=== PATIENT | female | born 1995 | race Caucasian/White ===

== ENCOUNTER 2017-10-31 00:47 | Observation (INO) | payer OTHER ==
[~2017-10-31] VITALS: Ht 157.5 cm; Wt 54.5 kg
[2017-10-31 00:51] VITALS: Ht 157.5 cm; Wt 54.5 kg
[2017-10-31] MEDS ORDERED: ONDANSETRON INJ 2 MG/ML 2 ML VIAL IV STA ×2 (01:03→02:05)
[2017-10-31] MEDS ORDERED: DiphenhydrAMINE HCL 50 MG/ML VIAL IV STA ×2 (01:03→04:33)
[2017-10-31] MEDS ORDERED: KETOROLAC TROMETHAMINE 30 MG/ML VIAL IV STA (01:03)
--- NOTE | 2017-10-31 01:13 | EMERGENCY ROOM VISIT NOTE ---
History Report prepared by Wes: Isidro Tello Under the Supervision of: Dr. Maurice Caceres M.D. First contact with patient: 00:57 Chief Complaint: VOMITING Stated Complaint: VOMITING BAD PAIN - NAUSEA History of Present Illness The patient is a 22 year old female who presents to the Emergency Room with complaints of worsening, upper, abdominal pain beginning early today. She currently rates her discomfort an 8/10 in severity. The patient states she developed abdominal pain this morning and then started vomiting this afternoon. She reports she cannot drink water without making her symptoms worse. The patient notes she ate jair lettuce on Thursday and vomited when she got home. She states she has been fine all week. The patient reports she has been drinking alcohol throughout the week, but she has not drank enough to vomit. She notes her symptoms radiate into her back. The patient states she had a few episodes of diarrhea and nausea, and she denies bloody stool. She reports she did eat some cake today and was able to keep that down. The patient denies fevers, urinary symptoms, previous abdominal surgeries, falls, injury, and rashes. She notes a strong family history of gallbladder disease. Source of History: patient Onset: earlier today Position: abdomen (upper) Symptom Intensity: 8/10 Timing: worsening Associated Symptoms: + nausea, + vomiting, + back pain, + diarrhea, No fevers, No urinary symptoms, No rash Note: Denies: bloody stool Review of Systems See HPI for pertinent positives & negatives. A total of 10 systems reviewed and were otherwise negative. Past Medical & Surgical Surgical Problems: (1) H/O wisdom tooth extraction Family History FHx: gallbladder disease Fatty liver GRANDMOTHER, Onset:40's - 50 (Grandmother at 48 secodary to fatty liver) Social History Smoking Status: Never Smoker Alcohol Use: occasionally Marital Status: single Occupation Status: [employer] student Current/Historical Medications Scheduled Control Pills ( Control Pills), 1 TAB PO DAILY Fluticasone Propionate (Nasal) (Flonase Allergy Relief), 1 SPRAY MARY DAILY Allergies Uncoded Allergies: AVACADOS (Allergy, Unknown, pruritis, 10/31/17) Physical Exam Vital Signs Date Time Temp Pulse Resp B/P (MAP) Pulse Ox O2 Delivery O2 Flow Rate FiO2 10/31/17 04:34 36.8 99 16 113/69 100 Room Air 10/31/17 03:29 83 16 115/61 97 Room Air 10/31/17 02:19 88 18 109/67 99 Room Air 10/31/17 00:51 36.7 79 18 127/52 94 Room Air Physical Exam GENERAL: Patient is uncomfortable appearing and in moderate distress. Dehydrated appearing. EYES: No scleral icterus, unremarkable pupils. ENT: Mucous membranes dry, no nasal congestion. NECK: No masses appreciated, no meningismus, trachea is midline. RESPIRATORY: No dyspnea. Clear to auscultation and equal bilaterally. No wheeze , no rhonchi. CARDIOVASCULAR: Regular rate and rhythm. No murmurs, rubs, gallops appreciated. GASTROINTESTINAL: Abdomen soft, epigastric tenderness to palpation, no peritonitis. Bowel sounds positive. No masses appreciated. BACK: No midline tenderness, no CVA tenderness EXTREMITIES: Normal motion all extremities, no cyanosis, no edema. NEUROLOGIC: Alert and oriented, no acute motor or sensory deficits, no focal weakness, cranial nerves grossly intact. SKIN: No rash, no jaundice, no diaphoresis. Mildly pale. Medical Decision & Procedures ER Provider Diagnostic Interpretation: Radiology results and stated below per my review and radiologist interpretation: US RUQ: There is some echogenic sludge noted in the gallbladder. However, the gallbladder wall is within normal limits. No biliary dilatation. Please correlate with clinical exam. The visualized pancreas is within normal limits. Hepatic enlargement with evidence of fatty infiltration. No focal abnormalities. No evidence for right hydronephrosis. Radiologist: Wood Strauss MD Laboratory Results 10/31/17 01:00 Red Blood Count 4.45, Mean Corpuscular Volume 86.1, Mean Corpuscular Hemoglobin 29.4, Mean Corpuscular Hemoglobin Concent 34.2, Mean Platelet Volume 9.5, Neutrophils (%) (Auto) 79.9, Lymphocytes (%) (Auto) 13.5, Monocytes (%) (Auto) 5.3, Eosinophils (%) (Auto) 0.9, Basophils (%) (Auto) 0.1, Neutrophils # (Auto) 6.14, Lymphocytes # (Auto) 1.04, Monocytes # (Auto) 0.41, Eosinophils # (Auto) 0.07, Basophils # (Auto) 0.01 10/31/17 01:00 Test 10/31/17 01:00 10/31/17 03:12 White Blood Count 7.69 K/uL (4.8-10.8) Red Blood Count 4.45 M/uL (4.2-5.4) Hemoglobin 13.1 g/dL (12.0-16.0) Hematocrit 38.3 % (37-47) Mean Corpuscular Volume 86.1 fL (80-100) Mean Corpuscular Hemoglobin 29.4 pg (25-34) Mean Corpuscular Hemoglobin Concent 34.2 g/dl (32-36) Platelet Count 209 K/uL (130-400) Mean Platelet Volume 9.5 fL (7.4-10.4) Neutrophils (%) (Auto) 79.9 % Lymphocytes (%) (Auto) 13.5 % Monocytes (%) (Auto) 5.3 % Eosinophils (%) (Auto) 0.9 % Basophils (%) (Auto) 0.1 % Neutrophils # (Auto) 6.14 K/uL (1.4-6.5) Lymphocytes # (Auto) 1.04 K/uL (1.2-3.4) Monocytes # (Auto) 0.41 K/uL (0.11-0.59) Eosinophils # (Auto) 0.07 K/uL (0-0.5) Basophils # (Auto) 0.01 K/uL (0-0.2) RDW Standard Deviation 40.0 fL (36.4-46.3) RDW Coefficient of Variation 12.7 % (11.5-14.5) Immature Granulocyte % (Auto) 0.3 % Immature Granulocyte # (Auto) 0.02 K/uL (0.00-0.02) Anion Gap 7.0 mmol/L (3-11) Est Creatinine Clear Calc Drug Dose 85.5 ml/min Estimated GFR () 118.6 Estimated GFR (Non- 102.4 BUN/Creatinine Ratio 19.9 (10-20) Calcium Level 8.4 mg/dl (8.5-10.1) Total Bilirubin 0.4 mg/dl (0.2-1) Direct Bilirubin 0.1 mg/dl (0-0.2) Aspartate Amino Transf (AST/SGOT) 13 U/L (15-37) Alanine Aminotransferase (ALT/SGPT) 17 U/L (12-78) Alkaline Phosphatase 49 U/L (45-117) Total Protein 7.5 gm/dl (6.4-8.2) Albumin 3.8 gm/dl (3.4-5.0) Lipase 80 U/L (73-393) Urine Color YELLOW Urine Appearance CLEAR (CLEAR) Urine pH 7.0 (4.5-7.5) Urine Specific [place] 1.029 (1.000-1.030) Urine Protein NEG (NEG) Urine Glucose (UA) NEG (NEG) Urine Ketones 2+ (NEG) Urine Occult Blood NEG (NEG) Urine Nitrite NEG (NEG) Urine Bilirubin NEG (NEG) Urine Urobilinogen NEG (NEG) Urine Leukocyte Esterase NEG (NEG) Urine WBC (Auto) 1-5 /hpf (0-5) Urine RBC (Auto) 0-4 /hpf (0-4) Urine Hyaline Casts (Auto) 1-5 /lpf (0-5) Urine Epithelial Cells (Auto) 20-30 /lpf (0-5) Urine Bacteria (Auto) NEG (NEG) Urine Test NEG (NEG) Laboratory results as reviewed by me. Medications Administered Medications (Trade) Dose Ordered Sig/Greg Route Start Time Stop Time Status Last Admin Dose Admin Ketorolac Tromethamine (Toradol Inj) 30 mg NOW STAT IV 10/31/17 01:03 10/31/17 01:05 DC 10/31/17 01:14 30 MG Ondansetron HCl (Zofran Inj) 4 mg NOW STAT IV 10/31/17 01:03 10/31/17 01:05 DC 10/31/17 01:13 4 MG Diphenhydramine HCl (Benadryl Inj) 25 mg NOW STAT IV 10/31/17 01:03 10/31/17 01:05 DC 10/31/17 01:14 25 MG Sodium Chloride 1,000 ml @ 999 mls/hr Q1H1M STAT IV 10/31/17 02:05 10/31/17 03:05 DC 10/31/17 02:16 999 MLS/HR Ondansetron HCl (Zofran Inj) 4 mg NOW STAT IV 10/31/17 02:05 10/31/17 02:06 DC 10/31/17 02:16 4 MG Promethazine HCl 12.5 mg/Sodium Chloride 50.5 ml @ 204 mls/hr NOW STAT IV 10/31/17 03:11 10/31/17 03:25 DC 10/31/17 03:25 204 MLS/HR Ranitidine HCl (zANTac SYRUP) 150 mg NOW ONCE PO 10/31/17 03:15 10/31/17 03:16 DC 10/31/17 03:43 150 MG Al Hydroxide/Mg Hydroxide (Maalox Susp) 30 ml STK-MED ONCE .ROUTE 10/31/17 03:21 10/31/17 03:22 DC 10/31/17 03:43 30 ML Lidocaine HCl (Viscous Lidocaine 2% Soln) 20 ml STK-MED ONCE .ROUTE 10/31/17 03:21 10/31/17 03:22 DC 10/31/17 03:43 10 ML Sodium Chloride 1,000 ml @ 999 mls/hr Q1H1M STAT IV 10/31/17 03:33 10/31/17 04:33 DC 10/31/17 03:47 999 MLS/HR Diphenhydramine HCl (Benadryl Inj) 25 mg NOW STAT IV 10/31/17 04:33 10/31/17 04:35 DC 10/31/17 04:41 25 MG Promethazine HCl 12.5 mg/Sodium Chloride 50.5 ml @ 202 mls/hr NOW STAT IV 10/31/17 04:40 10/31/17 04:54 DC 10/31/17 04:48 202 MLS/HR ED Course 0059: The patient was evaluated in room A11B. A complete history and physical exam was performed. 0201: I reevaluated the patient. She is feeling much better. She has experienced residual nausea. She denies further pain. Repeat abdominal exam is benign. The patient will receive fluids 0217: I discussed the patient's ultrasound findings with her and her family. The patient's grandmother of cirrhosis of the liver at age 48. 0359: I reevaluated the patient. Her nausea has resolved. 0433: Upon reevaluation, the patient denies significant pain. She is still having persistent nausea. Discussed results and treatment plan with the patient. She verbalized understanding and agreement with the treatment plan. The patient will be evaluated for further management. 0439: I discussed the patient's case with Dr. Chi's Resident, [facility] Hospitalist Service. The patient will be evaluated for further management. Medical Decision Differential: Cholecystitis, Gallbladder disfunction, Hepatic Disfunction, Gastritis/PUD, Renal Colic, Pancreatitis, amongst other pathologies entertained. Pleasant 22 yr old female with nausea, vomiting and minor diarrhea arrives with worsening symptoms associated with epigastric pain radiating to back. Pain controlled easily but despite many rounds of anti-emetics she has continued nausea. Abdominal exam on repeat is benign without peritonitis. Lipase negative and Panc on US looks wnl thus I do not feel this is pancreatitis. She has GB sludge without clear infection which may point to this being disfunction related. LFTs normal but there is already evidence of fatty liver on US thus with her family history I made it clear this must be addressed with primary care provider. She has graduation tomorrow morning but in current state I do not feel that she will do very well as outpatient. Discussed with patient/ mother staying in hospital and both are agreeable. Hospitalist consulted for further evaluation. Head Trauma GCS Score: 15 Medication Reconcilliation Current Medication List: was personally reviewed by me Blood Pressure Screening Patient's blood pressure: Normal blood pressure Blood pressure disposition: Did not require urgent referral Consults Time Called: [id number] Consulting Physician: Dr. Chi's Resident, [facility] Hospitalist Service Returned Call: [phone] I discussed the patient's case with Dr. Chi's Resident, [facility] Hospitalist Service. The patient will be evaluated for further management. Impression Primary Impression: Dehydration Additional Impressions: Nausea & vomiting Abdominal cramping Gallbladder sludge Fatty liver Scribe Attestation The scribe's documentation has been prepared under my direction and personally reviewed by me in its entirety. I confirm that the note above accurately reflects all work, treatment, procedures, and medical decision making performed by me. Departure Information Dispostion Being Evaluated By Hospitalist Referrals No Doctor, Assigned (PCP) Patient Instructions My [facility] Problem Qualifiers
[2017-10-31 01:17] LABS: BASO % 0.1 %; BASO ABS # 0.01 K/uL (0-0.2); EOS % 0.9 %; EOS ABS # 0.07 K/uL (0-0.5); HEMATOCRIT 38.3 % (37-47); HEMOGLOBIN 13.1 g/dL (12.0-16.0); IG# 0.02 K/uL (0.00-0.02); LYMPH % 13.5 %; LYMPH ABS # 1.04 K/uL (1.2-3.4); MEAN CELL VOLUME 86.1 fL (80-100); MEAN CORPUSCULAR HEMOGLOBIN 29.4 pg (25-34); MEAN CORPUSCULAR HGB CONC 34.2 g/dl (32-36); MEAN PLATELET VOLUME 9.5 fL (7.4-10.4); MONO % 5.3 %; MONO ABS # 0.41 K/uL (0.11-0.59); NEUT % 79.9 %; NEUT ABS # 6.14 K/uL (1.4-6.5); PLATELET COUNT 209 K/uL (130-400); RED CELL DISTRIBUTION WIDTH CV 12.7 % (11.5-14.5); WHITE BLOOD COUNT 7.69 K/uL (4.8-10.8)
[2017-10-31] MEDS ORDERED: BCPILLS PO (01:18)
[2017-10-31] MEDS ORDERED: FLUT0.15 NAE (01:19)
[2017-10-31 01:42] LABS: ALBUMIN 3.8 gm/dl (3.4-5.0); CALCIUM 8.4 mg/dl (8.5-10.1); CREATININE 0.81 mg/dl (0.60-1.20); POTASSIUM 3.4 mmol/L (3.5-5.1)
[2017-10-31 01:45] LABS: TOTAL PROTEIN 7.5 gm/dl (6.4-8.2)
[2017-10-31] MEDS ORDERED: SODIUM CHLORIDE 0.9% 1000ML 1,000 ML IV STA ×2 (02:05→03:33)
[2017-10-31] MEDS ORDERED: PROMETHAZINE HCL INJ 12.5 MG in SODIUM CHLORIDE 0.9% 50ML 50 ML IV STA ×2 (03:11→04:40)
[2017-10-31] MEDS ORDERED: GI COCKTAIL PO STA (03:11)
[2017-10-31] MEDS ORDERED: RANITIDINE HCL SYRUP 150 MG/10 ML UDC PO ONE (03:15)
[2017-10-31] MEDS ORDERED: LIDOCAINE HCL 2% VISC SOLN 20 ML UDC ONE (03:21)
[2017-10-31] MEDS ORDERED: ALUMINUM/MAGNESIUM SUSP 30 ML UDC ONE (03:21)
[2017-10-31] MEDS ORDERED: PROMETHAZINE HCL INJ 25 MG/ML 1 ML VIAL IV STA (04:33)
[2017-10-31] MEDS ORDERED: ACETAMINOPHEN 325 MG TAB PO PRN (06:15)
[2017-10-31] MEDS ORDERED: PROMETHAZINE HCL INJ 12.5 MG in SODIUM CHLORIDE 0.9% 50ML 50 ML IV PRN (06:15)
[2017-10-31] MEDS ORDERED: MAGNESIUM HYDROXIDE SUSP 30 ML UDC PO PRN (06:15)
[2017-10-31] MEDS ORDERED: ONDANSETRON INJ 2 MG/ML 2 ML VIAL IV PRN (06:15)
--- NOTE | 2017-10-31 06:22 | History and Physical ---
History & Physical Date & Time of Service: October 31, 2017 at 06:15 Chief Complaint: Vomiting Bad Pain - Nausea Primary Care Physician: Estela Walker M.D. History of Present Illness Source: patient, family, hospital records 22 y/o F with intractable nausea and vomiting and abdominal pain which started yesterday. had 1 episode of loose stool but no fevers/chills. No sick contacts. no recent travel. concerned about eating jair lettuce on Thursday. drinks alcohol occasionally, last intake was yesterday , had 3 drinks. denies any urinary symptoms, abnormal vaginal d/c or bleeding. f/h significant for GB disease Past Medical/Surgical History Medical Problems: (1) Intractable nausea and vomiting Surgical Problems: (1) H/O wisdom tooth extraction Family History FHx: gallbladder disease Fatty liver GRANDMOTHER, Onset:40's - 50 (Grandmother at 48 secodary to fatty liver) Social History Smoking Status: Never Smoker Smokeless Tobacco Use: No Alcohol Use: none Drug Use: none Marital Status: single Occupational Status: [employer] student Immunizations History of Influenza Vaccine: Unknown History of Pneumococcal: No History of Hepatitis B Vaccine: Unknown Allergies Uncoded Allergies: AVACADOS (Allergy, Unknown, pruritis, 10/31/17) Home Medications Scheduled Control Pills ( Control Pills), 1 TAB PO DAILY Famotidine (Pepcid), 20 MG PO BID Fluticasone Propionate (Nasal) (Flonase Allergy Relief), 1 SPRAY MARY DAILY Scheduled PRN Ondansetron Odt (Zofran Odt), 8 MG SL Q8H PRN for Nausea Review of Systems Constitutional: No fever, No chills Eyes: No worsening of vision ENT: No hearing loss Respiratory: No cough, No sputum Cardiovascular: No chest pain Abdomen: + pain, + nausea, + vomiting Musculoskeletal: No joint pain Genitourinary - Female: No dysuria, No urinary frequency, No urinary urgency Neurologic: No memory loss Endocrine: No fatigue Hematologic / Lymphatic: No abnormal bleeding/bruising Physical Exam Vital Signs Date Time Temp Pulse Resp B/P (MAP) Pulse Ox O2 Delivery O2 Flow Rate FiO2 10/31/17 06:00 100 16 114/63 97 Room Air 10/31/17 04:34 36.8 99 16 113/69 100 Room Air 10/31/17 03:29 83 16 115/61 97 Room Air 10/31/17 02:19 88 18 109/67 99 Room Air 10/31/17 00:51 36.7 79 18 127/52 94 Room Air General Appearance: WD/WN, no apparent distress Head: normocephalic ENT: hearing grossly normal Neck: supple, no adenopathy Respiratory/Chest: chest non-tender, lungs clear, normal breath sounds, no respiratory distress, no accessory muscle use Cardiovascular: regular rate, rhythm Abdomen/GI: normal bowel sounds, soft, + tenderness (RUQ and epigastric) Extremities/Musculoskelatal: no pedal edema Neurologic/Psych: alert, normal mood/affect, oriented x 3 Diagnostics Laboratory Results Results Past 24 Hours Test 10/31/17 01:00 10/31/17 03:12 Range/Units White Blood Count 7.69 4.8-10.8 K/uL Red Blood Count 4.45 4.2-5.4 M/uL Hemoglobin 13.1 12.0-16.0 g/dL Hematocrit 38.3 37-47 % Mean Corpuscular Volume 86.1 80-100 fL Mean Corpuscular Hemoglobin 29.4 25-34 pg Mean Corpuscular Hemoglobin Concent 34.2 32-36 g/dl Platelet Count 209 130-400 K/uL Mean Platelet Volume 9.5 7.4-10.4 fL Neutrophils (%) (Auto) 79.9 % Lymphocytes (%) (Auto) 13.5 % Monocytes (%) (Auto) 5.3 % Eosinophils (%) (Auto) 0.9 % Basophils (%) (Auto) 0.1 % Neutrophils # (Auto) 6.14 1.4-6.5 K/uL Lymphocytes # (Auto) 1.04 1.2-3.4 K/uL Monocytes # (Auto) 0.41 0.11-0.59 K/uL Eosinophils # (Auto) 0.07 0-0.5 K/uL Basophils # (Auto) 0.01 0-0.2 K/uL RDW Standard Deviation 40.0 36.4-46.3 fL RDW Coefficient of Variation 12.7 11.5-14.5 % Immature Granulocyte % (Auto) 0.3 % Immature Granulocyte # (Auto) 0.02 0.00-0.02 K/uL Sodium Level 139 136-145 mmol/L Potassium Level 3.4 3.5-5.1 mmol/L Chloride Level 106 98-107 mmol/L Carbon Dioxide Level 26 21-32 mmol/L Anion Gap 7.0 3-11 mmol/L Blood Urea Nitrogen 16 7-18 mg/dl Creatinine 0.81 0.60-1.20 mg/dl Est Creatinine Clear Calc Drug Dose 85.5 ml/min Estimated GFR () 118.6 Estimated GFR (Non- 102.4 BUN/Creatinine Ratio 19.9 10-20 Random Glucose 106 70-99 mg/dl Calcium Level 8.4 8.5-10.1 mg/dl Total Bilirubin 0.4 0.2-1 mg/dl Direct Bilirubin 0.1 0-0.2 mg/dl Aspartate Amino Transf (AST/SGOT) 13 15-37 U/L Alanine Aminotransferase (ALT/SGPT) 17 12-78 U/L Alkaline Phosphatase 49 45-117 U/L Total Protein 7.5 6.4-8.2 gm/dl Albumin 3.8 3.4-5.0 gm/dl Lipase 80 73-393 U/L Urine Color YELLOW Urine Appearance CLEAR CLEAR Urine pH 7.0 4.5-7.5 Urine Specific [place] 1.029 1.000-1.030 Urine Protein NEG NEG Urine Glucose (UA) NEG NEG Urine Ketones 2+ NEG Urine Occult Blood NEG NEG Urine Nitrite NEG NEG Urine Bilirubin NEG NEG Urine Urobilinogen NEG NEG Urine Leukocyte Esterase NEG NEG Urine WBC (Auto) 1-5 0-5 /hpf Urine RBC (Auto) 0-4 0-4 /hpf Urine Hyaline Casts (Auto) 1-5 0-5 /lpf Urine Epithelial Cells (Auto) 20-30 0-5 /lpf Urine Bacteria (Auto) NEG NEG Urine Test NEG NEG Diagnostic Radiology GB US There is some echogenic sludge noted in the gallbladder. However, the gallbladder wall is within normal limits. No biliary dilatation. Please correlate with clinical exam. The visualized pancreas is within normal limits. Hepatic enlargement with evidence of fatty infiltration. No focal abnormalities. No evidence for right hydronephrosis. Impression Assessment and Plan 22 y/o F here with intractable nausea and vomiting Intractable nausea/vomiting - GB US : GB sludge and fatty liver - continue IVF - Zofran and Phenergan as needed for NV - Protonix IV for possible gastritis Family would like to pursue further testing in [place] for fatty liver . Full code DVT PPx: SCDs admit to med/surg Attending addendum: I have physically seen this patient, have supervised the medical residents activities, and agree with the H&P unless as otherwise noted. Assessment and Plan: Intractable nausea and vomiting/dehydration-- Observation status to the medical floor. NSS plus KCl 20 mEq at 200 mils per hour. Pantoprazole 40 mg IV daily. Zofran 4 mg IV every 6 hours as needed. Phenergan 10 mg IV every 6 hours as needed. elsie Discussed with patient and mother, who is in the room, possible diagnoses including toxin induced food poisoning, food poisoning, severe gastritis, gastric ulcer, duodenal ulcer, liver disease. In either case, patient and mother will be more comfortable having definitive therapy with her home [facility] physician in [place]. The patient will be admitted for IV fluids and treatment as above, so that she may be able to attend graduation early tomorrow morning. There was concern among family regarding significant issues with liver disease and in family members. It was discussed with patient and mother that there is no suggestion of any type of liver cancer, but that could not be completely eliminated. Ultrasound gallbladder did show gallbladder sludge and fatty liver. Unless patient has persistent or worsening symptoms that we would pursue further , will not order HIDA scan with gallbladder EF or CT abdomen pelvis, or additional workup for fatty liver at this time. Advanced Directives Existing Advance Directive: No Existing Living Will: No Existing Power of Hr Administrator: No Resuscitation Status VTE Prophylaxis Will order VTE Prophylaxis: Yes Social Service Consult None Apply Resident Tracking Resident Involvement: Resident Care Provided Care Provided: Adult Hospital Medicine
[2017-10-31] MEDS ORDERED: PANTOprazole INJ 40 MG in SYRINGE 0 ML IV STA (06:24)
--- NOTE | 2017-10-31 06:42 | DIAGNOSTIC IMAGING REPORT ---
GALLBLADDER-ABD LIMITED CLINICAL HISTORY: 22 years-old Female presenting with epigastric pain/RUQ with n/v. Eval Pancrease if possible. TECHNIQUE: Real-time grayscale and limited color Doppler ultrasound imaging of the abdomen limited to the right upper quadrant was performed. COMPARISON: None. FINDINGS: Pancreas: Visualized portions of the pancreatic head and body normal. Liver: Mildly hyperechogenic parenchyma, although the right hemidiaphragm remains visible, likely indicating mild steatosis. The liver measures 18 cm in maximal sagittal dimension. No sonographic evidence of hepatic mass. Main portal vein patent with normal directional flow. Biliary: No intrahepatic biliary ductal dilatation. Common bile duct measures up to 3 mm in diameter. Gallbladder: Gallbladder sludge. No evidence of gallstones, gallbladder wall thickening, gallbladder distention, or pericholecystic fluid or inflammatory change. Right kidney: Normal in appearance without evidence of hydronephrosis. Ascites: None. Other: None. IMPRESSION: 1. Gallbladder sludge without cholelithiasis or biliary ductal dilatation. 2. Hepatic steatosis. Correlate with liver function tests to exclude steatohepatitis as a cause for abdominal pain. Electronically signed by: Mirza Aguirre M.D. 10/31/2017 6:40 AM Dictated Date/Time: 10/31/2017 6:39 AM
[2017-10-31] MEDS ORDERED: IV FLUIDS COMPLETED PRN (07:00)
[2017-10-31 07:01] VITALS: O2SAT 97
[2017-10-31 07:38] VITALS: BP 104/67; PULSE 70; TEMP 37.1; O2SAT 98
[2017-10-31] MEDS ORDERED: NSS + 20MEQ KCL 1000ML 1,000 ML IV SCH (07:45)
[2017-10-31] MEDS ORDERED: BCP'S~ORDER AWAITING ACTION SCH (08:00)
[2017-10-31] MEDS ORDERED: FAMO20TA11 PO ×2 (11:01→13:20)
[2017-10-31] MEDS ORDERED: ONDA8TAB62 SL ×2 (11:01→13:20)
--- NOTE | 2017-10-31 11:09 | Discharge Instructions ---
Discharge Instructions Date of Service October 31, 2017. Admission Reason for Admission: Intractable Nausea And Vomiting Discharge Discharge Diagnosis / Problem: nausea/vomiting - likely viral gastroenteritis Discharge Goals Goal(s): Diagnostic testing, Therapeutic intervention Activity Recommendations Activity Limitations: resume your previous activity . Instructions / Follow-Up Instructions / Follow-Up viral gastroenteritis -fortunately we're not seeing anything worrisome from a food poisoning / gallbladder (see below) or other point of view - and given that we're still seeing stomach bugs going around, it's most likely that you had a viral gastroenteritis -because you had such severe nausea/vomiting, it may take a week or so for you stomach to get back to normal. to that end: -use pepcid (famotidine) twice a day for the next few days to a week (until you feel normal/ feel like you don't have any stomach pain/ache) - if you are past day 7 and still needing it, this would be a good trigger to get evaluated -use the zofran (ondansetron) fairly liberally as needed for nausea - it can be taken as much as every six hours as needed - again if you find that you're needing it at all past about a week from now, that would warrant further investigation gallbladder sludge -with no signs of inflammation, infection, or obstruction, the gallbladder sludge is likely just an incidental finding. about 25% of all people when imaged have stones or sludge in the gallbladder, and just sitting there without blocking things up is "a time bomb that sometimes never goes off" -- ie many, many people will have those sort of findings for years without it ever actually being a problem -as we discussed, however, sometimes gallbladder issues can show up atypically - - if you find that you get a "stomach bug" way too frequently (once a year is unfortunately fairly normal, but say, once a month -- then we'd be more suspicious that the gallbladder acting up in an atypical presentation could be the case) then we'd want you checked out fatty liver -this is actually a fairly common finding - acutely often related to current lifestyle issues -for the next month, get back to eating healthy and don't drink any alcohol -- have a repeat ultrasound in a month. if your liver isn't normal//getting back to normal, then it would warrant further investigation. common things being common, checking a lipid panel and an A1c (3 month sugar average) provides the root cause in the majority of people with fatty liver that aren't just acutely lifestyle related. there is an entity of fatty liver with uncertain cause ( ESTEVEZ - nonalcoholic fatty liver) but truthfully the majority of those are just chronic lifestyle issues that aren't being corrected; there are a small percent with liver problems that we don't entirely understand -- but the odds are heavily against that; and most likely this is something that will resolve itself with time and the above noted / discussed lifestyle changes Current Hospital Diet Patient's current hospital diet: Low Fiber Diet Discharge Diet Recommended Diet: Regular Diet Pending Studies Studies pending at discharge: no Medical Emergencies . Who to Call and When: Medical Emergencies: If at any time you feel your situation is an emergency, please call 911 immediately. . Non-Emergent Contact Non-Emergency issues call your: Primary Care Provider . . "Provider Documentation" section prepared by Rosalino Thompson. .
--- NOTE | 2017-10-31 11:21 | Discharge Summary ---
Discharge Summary Date of Service October 31, 2017. Discharge Summary Admission Date: October 31, 2017 at 06:13 Discharge Date: October 31, 2017 Discharge Disposition: Home Principal Diagnosis: Nausea/Vomiting Procedures: None Consultations: None Medication Reconciliation New Medications: Famotidine (Pepcid) 20 Mg Tab 20 MG PO BID, #14 TAB Ondansetron Odt (Zofran Odt) 8 Mg Soltab 8 MG SL Q6H PRN for Nausea, #30 TAB Continued Medications: Control Pills ( Control Pills) Tab 1 TAB PO DAILY, TAB Fluticasone Propionate (Nasal) (Flonase Allergy Relief) 50 Mcg/Act Spr 1 SPRAY MARY DAILY Discharge Exam Review of Systems: Constitutional: No fever, No chills, No sweats, No weight loss Eyes: No worsening of vision ENT: No hearing loss Respiratory: No cough, No sputum, No wheezing Cardiovascular: No chest pain Abdomen: + nausea (improved), No pain Musculoskeletal: No joint pain Genitourinary - Female: No dysuria Neurologic: No memory loss, No paralysis Endocrine: No fatigue Integumentary: No rash Physical Exam: General Appearance: WD/WN, no apparent distress Eyes: normal inspection, PERRL ENT: hearing grossly normal Neck: no adenopathy Respiratory/Chest: lungs clear Cardiovascular: regular rate, rhythm, no murmur Abdomen / GI: normal bowel sounds, non tender, soft Extremities: no calf tenderness, no pedal edema Neurologic/Psychiatric: alert, normal mood/affect Skin: no rash Hospital Course HPI: 22 y/o F with intractable nausea and vomiting and abdominal pain which started yesterday. had 1 episode of loose stool but no fevers/chills. No sick contacts. no recent travel. concerned about eating jair lettuce on Thursday. drinks alcohol occasionally, last intake was yesterday , had 3 drinks. denies any urinary symptoms, abnormal vaginal d/c or bleeding. f/h significant for GB disease HOSPITAL COURSE: Intractable nausea/vomiting - GB US : GB sludge and fatty liver - Resolved w/IV fluids and antiemetics - No further vomiting throughout the AM - Tolerated clear liquids, full liquids, then food Fatty liver - Family would like to pursue further testing in [place] for fatty liver . - Advised to abstain from alcohol and get repeat US in 1 mo Full code DVT PPx: SCDs Admitted to med/surg Discharged 10/31/17 in good condition with her Mother Total Time Spent: Greater than 30 minutes This includes examination of the patient, discharge planning, medication reconciliation, and communication with other providers. Discharge Instructions Please refer to the electronic Patient Visit Report (Discharge Instructions) for additional information. Follow-Up - With PCP in [place]
[2017-10-31] MEDS ORDERED: ONDANSETRON 4MG OD TAB PO ONE (11:45)
[2017-10-31] MEDS ORDERED: FAMOTIDINE 20 MG TAB PO ONE (11:45)
[2017-10-31 12:44] VITALS: BP 104/67; PULSE 70; TEMP 37.1; O2SAT 98
== END 2017-10-31 13:00 | disposition home or self-care (01) ==
LOC: C.EDB 00:48 → C.MS2W 06:13 → ENRESERV 06:38
PROVIDERS: ADMIT Family Medicine; ATTEND Family Medicine
DX: R11.2 Nausea with vomiting, unspecified (principal); Z79.3 Long term (current) use of hormonal contraceptives; Z98.818 Other dental procedure status; Z79.899 Other long term (current) drug therapy